=== PATIENT | male | born 1990 | race African-American/Black ===

== ENCOUNTER 2017-04-25 05:15 | Emergency (ER) | payer SELFPAY ==
[2017-04-25] MEDS ORDERED: Ketorolac Tromethamine 30 MG/ML VIAL ONE (05:39)
[2017-04-25] MEDS ORDERED: Ondansetron HCl/PF 4 MG/2 ML Vial ONE (05:39)
[2017-04-25 05:42] LABS: #Eosinphils 0.1 thou/uL (0.0-0.7); #Lymphocytes 2.6 thou/uL (1.20-3.40); #Monocytes 0.4 thou/uL (0.11-0.59); #Neutrophils 6.2 thou/uL (1.40-6.50); %Basophils 0.2 % (0.0-1.0); %Lymphocytes 27.5 % (21.0-51.0); %Monocytes 4.6 % (0.0-10.0); Hematocrit 45.2 % (42.0-52.0); Red Blood Cell (RBC) Count 5.26 mill/uL (4.70-6.10); White Blood Cell (WBC) Count 9.4 thou/uL (4.8-10.8)
[2017-04-25 05:54] LABS: ALT (SGPT) 30 U/L (8-55); AST (SGOT) 23 U/L (5-34); Alkaline Phosphatase 52 U/L (40-150); Anion Gap 12 mmol/L (10-20); BUN (Urea Nitrogen) 13 mg/dL (8.9-20.6); Bilirubin, Total 0.4 mg/dL (0.2-1.2); Calc. Creatinine Clearance 0 mL/min (70-130); Carbon Dioxide 26 mmol/L (22-29); Chloride 104 mmol/L (98-107); Estimated GFR-MDRD 88; Globulin 3.3 g/dL (2.4-3.5); Protein, Total 7.4 g/dL (6.0-8.3)
[2017-04-25 06:39] LABS: Bilirubin Negative (Negative); Blood, Urine Large (Negative); Glucose, Urine (Dipstick) Negative (Negative); Ketone, Urine Trace mg/dL (Negative); Nitrite Negative (Negative); Protein, Urine (Dipstick) Trace mg/dL (Neg-Trace); Urobilinogen 0.2 mg/dL (0.2-1.0)
[2017-04-25 06:43] LABS: Bacteria/HPF None Seen HPF (None Seen); Hyaline Casts/LPF 4-6 HYALINE CAST LPF (0-3 Hyaline); RBC/HPF GREATER THAN 50-TNTC HPF (0-3); Squamous Epithelial 0-3 HPF (0-3)
--- NOTE | 2017-04-25 07:07 | CT ---
CT OF THE ABDOMEN AND PELVIS WITHOUT CONTRAST: Date: 04/25/17 COMPARISON: None. HISTORY: Right flank pain radiating into the right groin. TECHNIQUE: Multiple contiguous axial images were obtained in a CT of the abdomen and pelvis without contrast. Co doc reformats were performed. FINDINGS: There is a 2-3 mm calcification at the right ureterovesical junction with mild to moderate right hydr onephrosis. No other calcifications are seen in either kidney. No left hydronephrosis is seen. The liver, gallbladder, adrenal glands, spleen, and pancreas are unremarkable, although evaluation is limited on this noncontrast examination. No free air, free fluid, or stranding changes are seen in the abdomen or pelvis. The large and small bowel are unremarkable. The appendix is normal. No abdominal or pelvic lymphadenopathy seen. The osseous structures, visualized inferior thorax, and abdominal wall soft tissues are unremarkable. IMPRESSION: Right distal ureteral calcification with mild to moderate right hydronephrosis. POS: [facility]
== END 2017-04-25 07:55 | disposition home or self-care (01) ==
LOC: ERS 05:15
DX: N13.2 Hydronephrosis with renal and ureteral calculous obstruction (principal)
CPT/HCPCS: 74176; 80053; 81003; 81015; 85025; 96361; 96374; 96375; J1885; J2405

== ENCOUNTER 2017-08-12 06:11 | Emergency (ER) | payer SELFPAY ==
[2017-08-12] MEDS ORDERED: Cephalexin 250 MG CAP ONE (07:10)
[2017-08-12] MEDS ORDERED: Ibuprofen 800 MG TAB ONE (07:10)
== END 2017-08-12 07:25 | disposition home or self-care (01) ==
LOC: ERS 06:11
DX: L03.012 Cellulitis of left finger (principal)
CPT/HCPCS: 99283

== ENCOUNTER 2019-05-05 18:15 | Emergency (ER) | payer SELFPAY ==
[2019-05-05] MEDS ORDERED: Ondansetron ODT 4 MG TAB ONE (18:49)
== END 2019-05-05 19:50 | disposition home or self-care (01) ==
LOC: ERS 18:15
DX: K52.9 Noninfective gastroenteritis and colitis, unspecified (principal)
CPT/HCPCS: 99283; Q0162

== ENCOUNTER 2019-05-07 01:27 | Emergency (ER) | payer SELFPAY ==
[2019-05-07] MEDS ORDERED: Bicillin LA 1.2 MILLION UNITS/2 ML SYRINGE ONE (03:16)
== END 2019-05-07 03:40 | disposition home or self-care (01) ==
LOC: ERS 01:27
DX: J02.0 Streptococcal pharyngitis (principal); R10.9 Unspecified abdominal pain
CPT/HCPCS: 87430; 96372; 99284; J0561

== ENCOUNTER 2020-02-21 09:48 | Emergency (ER) | payer OTHER, SELFPAY | END 2020-02-21 10:56 | disposition home or self-care (01) | LOC: ERS 09:48 | DX: J02.0 Streptococcal pharyngitis (principal) | CPT/HCPCS: 87430; 99283 ==

== ENCOUNTER 2021-01-11 15:25 | Emergency (ER) | payer SELFPAY | END 2021-01-11 16:01 | disposition home or self-care (01) | LOC: ERS 15:25 | DX: R59.0 Localized enlarged lymph nodes (principal) | CPT/HCPCS: 99282 ==

== ENCOUNTER 2021-09-14 02:20 | Emergency (ER) | payer SELFPAY | END 2021-09-14 04:15 | disposition home or self-care (01) | LOC: ERS 02:20 | DX: J02.9 Acute pharyngitis, unspecified (principal) | CPT/HCPCS: 87081; 87430; 99283 ==

== ENCOUNTER 2021-11-20 00:49 | Emergency (ER) | payer SELFPAY | END 2021-11-20 03:06 | disposition home or self-care (01) | LOC: ERS 00:49 | DX: S70.362A Insect bite (nonvenomous), left thigh, initial encounter (principal); W57.XXXA Bitten or stung by nonvenomous insect and other nonvenomous arthropods, initial encounter | CPT/HCPCS: 99282 ==

== ENCOUNTER 2021-12-26 13:33 | Emergency (ER) | payer SELFPAY | END 2021-12-26 14:38 | disposition home or self-care (01) | LOC: ERS 13:33 | DX: S00.03XA Contusion of scalp, initial encounter (principal); M62.838 Other muscle spasm; V43.63XA Car passenger injured in collision with pick-up truck in traffic accident, initial encounter ==

== ENCOUNTER 2023-01-03 11:34 | Emergency (ER) | payer OTHER, SELFPAY ==
[2023-01-03] MEDS ORDERED: Morphine 4 MG/ML VIAL ONE (12:57)
[2023-01-03] MEDS ORDERED: Ketorolac Tromethamine 30 MG/ML VIAL ONE (12:57)
== END 2023-01-03 13:44 | disposition home or self-care (01) ==
LOC: ERS 11:34
DX: S06.0X0A Concussion without loss of consciousness, initial encounter (principal); V49.9XXA Car occupant (driver) (passenger) injured in unspecified traffic accident, initial encounter
CPT/HCPCS: 70450; 71045; 72125; 96374; 96375; J1885; J2270